=== PATIENT | female | born 1965 | race Two or more races ===

== ENCOUNTER 2023-05-20 09:12 | Outpatient (OUT) | payer OTHER, BC, SELFPAY ==
--- NOTE | 2023-05-20 09:18 | MM_ITS ---
Patient Name: ELAINE SWANSON MR#: [id number] : 1965 Exam Date: 05/20/2023 Ordering Doctor: DR Isak King . RADIOLOGY REPORT PROCEDURE: MM TOMOSYNTHESIS SCREENING BI COMPARISON: MG MAMM SCREEN 3D [place] CAD, 05/06/2021. MG MAMM SCREEN [place] W CAD, 05/11/2019. MG MAMM SCREEN [place] W CAD, 04/30/2017. MG MAMM [place] SCRN W CAD DIG, 05/01/2014. INDICATIONS: Screening Calculator Name NCI Breast Cancer Risk Assessment Tool 5 Year Breast Cancer Risk 1.60% Lifetime Breast Cancer Risk 9.30% Personal Breast Cancer No Personal Ovarian Cancer No Treatments None Family Cancers Aunt-paternal with breast cancer at age 74. LOCATION: The [facility] BREAST COMPOSITION: Extremely dense, which lowers the sensitivity of mammography. FINDINGS: DIAGNOSTIC CATEGORY 1--NEGATIVE. RIGHT BREAST: No significant suspicious finding. No significant change has occurred. LEFT BREAST: No significant suspicious finding. No significant change has occurred. RECOMMENDATIONS: ROUTINE MAMMOGRAM AND CLINICAL EVALUATION IN 12 MONTHS. PLEASE NOTE: A NORMAL MAMMOGRAM DOES NOT EXCLUDE THE POSSIBILITY OF BREAST CANCER. A CLINICALLY SUSPICIOUS PALPABLE LUMP SHOULD BE BIOPSIED. Dictated by: Blaze Stapleton M.D. on 05/20/2023 at 12:00 Approved by: Blaze Stapleton M.D. on 05/20/2023 at 12:02
== END 2023-05-20 09:13 | disposition home or self-care (01) ==
LOC: MAMMO 09:12
PROVIDERS: PCP Family Medicine; Visit Provider Family Medicine
DX: Z12.31 Encounter for screening mammogram for malignant neoplasm of breast (principal); Z80.3 Family history of malignant neoplasm of breast
CPT/HCPCS: 77063; 77067

== ENCOUNTER 2023-08-12 09:00 | Outpatient (OUT) | payer OTHER, SELFPAY ==
--- NOTE | 2023-08-12 09:07 | MM_ITS ---
Patient Name: ELAINE SWANSON MR#: [id number] : 1965 Exam Date: 08/12/2023 Ordering Doctor: DR KARSTEN SIN . RADIOLOGY REPORT PROCEDURE: MM TOMOSYNTHESIS DIAGNOSTIC BI, 08/12/2023, 09:08 US BREAST BI LIMITED, 08/12/2023, 09:43 COMPARISON: MM TOMOSYNTHESIS SCREENING BI, 05/20/2023. MG MAMM SCREEN 3D [place] CAD, 05/06/2021. MG MAMM SCREEN [place] W CAD, 05/11/2019. MG MAMM SCREEN [place] W CAD, 04/30/2017. INDICATIONS: pain of both breasts N64.4 Calculator Name NCI Breast Cancer Risk Assessment Tool 5 Year Breast Cancer Risk 1.60% Lifetime Breast Cancer Risk 9.30% Personal Breast Cancer No Personal Ovarian Cancer No Treatments None Family Cancers Aunt-paternal with breast cancer at age 74. LOCATION: The [facility] BREAST COMPOSITION: Extremely dense, which lowers the sensitivity of mammography. FINDINGS: DIAGNOSTIC CATEGORY 3--PROBABLY BENIGN FINDING. THE FOLLOWING FINDING(S) HAS A HIGH PROBABILITY OF A BENIGN ETIOLOGY: RIGHT BREAST: 10 mm nodule versus dense fibroglandular tissue within anterior medial breast approximately 3 o'clock. Ultrasound evaluation demonstrates an 8 x 8 x 5 mm fairly well-circumscribed hypoechoic mass which corresponds to the mammographic findings. No appreciable internal blood flow on color Doppler. While this is nonspecific the appearance is not overtly suspicious. Follow-up ultrasound evaluation in 6 months is recommended to document stability. Alternatively, ultrasound-guided tissue sampling could be performed if desired. LEFT BREAST: No significant suspicious finding. No significant change has occurred. RECOMMENDATIONS: SHORT TERM FOLLOW-UP ULTRASOUND RIGHT BREAST IN 6 MONTHS. PLEASE NOTE: A NORMAL MAMMOGRAM DOES NOT EXCLUDE THE POSSIBILITY OF BREAST CANCER. A CLINICALLY SUSPICIOUS PALPABLE LUMP SHOULD BE BIOPSIED. Dictated by: Blaze Stapleton M.D. on 08/12/2023 at 10:36 Approved by: Blaze Stapleton M.D. on 08/12/2023 at 10:43
== END 2023-08-12 09:01 | disposition home or self-care (01) ==
LOC: MAMMO 09:02
PROVIDERS: PCP Family Medicine; Visit Provider Family Medicine
DX: N64.4 Mastodynia (principal); Z80.3 Family history of malignant neoplasm of breast
CPT/HCPCS: 76642; 77066; G0279

== ENCOUNTER 2023-11-03 07:49 | Emergency (ER) | payer OTHER, SELFPAY ==
[2023-11-03 07:53] VITALS: BP 142/69; PULSE 79; TEMP 36.6; O2SAT 97; BMI 25.8
--- OUTSIDE RECORDS SUMMARY | 2023-11-03 07:59 | XMS_ITS | CCD ---
Author Organization [facility] Care Team Providers Care Manometer Technician Name Role Phone DR KARSTEN SIN Primary Care Unavailable REQUEST, NONE LISTED Attending Unavaila ble REQUEST, NONE LISTED Consulting Unavaila ble REQUEST, NONE LISTED Admitting Unavaila ble KARSTEN SIN Attending Unavailable Results Test Name Value Interpretation Reference Range Facil ity REBEKAH - TSHon 10-14-2022 TSH 1.685 uIU/mL Normal 0.358-3.740 The [facility] Comment on above: Performed By: #### DATTSH #### [facility] [address] [address] [address] Kristofer Arredondo TSH RANGE SEE BELOW Normal The [facility] Comment on above: Result Comment: <0.34 UIU/ml HYPERTHYROI D 0.34-5.60 UIU/ml EUTHYROID >5.60 UIU/ml HYPOTHYROID Performed By: #### D ATTSH #### [facility] [address] [place], [place] [address] Dr. Kristofer Arredondo Chart Updateon 02-09-2019 Chart Update Active Problems Counseling for travel (V65.49) (Z71.89) Encounter for vaccination (V05.9) (Z23) Chart Update Progress Note Free Text_[facility]: Patient here for Yellow Fever vaccine. She received her last one 10 years ago in [place]. Told patient she is good for life and does not need another booster. Signatures Electronically signed by : RADHA Pina; Feb 09 2019 2:27PM EST (Author) Normal [facility] Encounters Encounter Date Encounter Type Care Provider Facility Start: 07-29-2023 End: 07-29-2023 ambulatory KARSTEN SIN Not Available Start: 10-14-2022 End: 10-15-[address] KARSTEN SIN Facility:[facility] Payers Date Payer Category Payer Unknown [id number] 1965 Unknown [id number] 1959 Self-pay Unknown [id number] [id number] [id number] Summary Purpose Family History No Family History Records FoundNo Family History Records FoundNo Family History Records Found Advance Directives No Advanced Directives Records FoundNo Advanced Directives Records FoundNo Advanced Directives Records Found Additional Source Comments INFORMATION SOURCE (unrecogn ized section and content) DATE CREATED AUTHOR 02/10/2019 [facility] DATE CREATED AUTHOR AUTHOR'S ORGANIZ ATION 10/15/2022 [facility] DATE CREATED AUTHOR AUTHOR'S ORGANIZ ATION 07/30/2023 [facility] EP[employer] FOR RECORDS PERTAINING TO PATIENTS WHO ARE OR HAVE BEEN ENROLLED IN A CHEMICAL DEPENDENCY/SUBSTANCEABUSE PROGRAM, SOME INFORMATION MAY BE OMITTED. This clinical summary was aggregated from multiple sources. Caution should be exercised in using it in the provision of clinical care. This summary normalizes information from multiple sources, and as a consequence, information in this document may materially change the coding, format and clinical context of patient data. In addition, data may be omitted in some cases. CLINICAL DECISIONS SHOULD BE BASED ON THE PRIMARY CLINICAL RECORDS. [facility] [employer] [facility]. provides no warranty or guarantee of the accuracy or completeness of information in this document.
--- NOTE | 2023-11-03 08:22 | XR_ITS ---
The [address] [address] Patient Name: ELAINE SWANSON MRN: [id number] date: 1965 Sex: F Assigned Patient Location: ER Current Patient Location: ER Accession/Order Number: [id number] Exam Date: 11/03/2023 08:43 Report Date: 11/03/2023 09:10 At the request of: MARIA EUGENIA CENTENO Procedure: XR chest 2V EXAMINATION: XR chest 2V HISTORY: chest injury, fall , shortness breath, left scapular pain COMPARISON: No relevant comparison available. FINDINGS: LUNGS: Mild haziness within lateral left lung base. VASCULATURE: No increased pulmonary vasculature. PLEURA: Blunting of costophrenic angles bilaterally expansion versus pleural fluid. No pneumothorax. CARDIAC: No cardiomegaly or cardiac silhouette abnormality. MEDIASTINUM: No visible mass or adenopathy. BONES: Questionable fracture of posterior-lateral left ninth rib as seen on the lateral view. OTHER: Negative. XR/XR chest 2V IMPRESSION: 1. Questionable fracture of the posterior lateral left ninth rib. 2. Trace amount left basilar atelectasis versus infiltrates. 3. Blunting of the costophrenic angles bilaterally is likely due to hyperexpansion of the lungs. Small pleural effusions cannot be completely excluded. Electronically authenticated by: LAURA MCMANUS Date: 11/03/2023 09:10
--- NOTE | 2023-11-03 08:26 | ED.FALL1 ---
HPI HPI - Fall General Chief Complaint: Back Pain/Injury Stated Complaint: back pain/ fall Time Seen by Provider: 11/03/23 08:00 Source: patient Mode of arrival: Wheelchair Limitations: no limitations History of Present Illness HPI Narrative: Patient was running with the dog on 10/30/23 when she tripped and fell, falling forward and landing on her chest - she was unable to get her arms up in time to break the fall. She denied injuring the head, neck or back. She said that she was unable to lift her arms due to the pain in the mid chest. She took some tylenol that night. Over the next few days she went about her daily activities, still in pain and unable to lift her arms up or take deep breaths due to the pain in the mid chest. Yesterday she was able to move her arms more and was lifting some pots that she had purchased to prepare for planting. While doing so she began to have pain in the left scapula. She took 650mg tylenol around 130am and nothing since. She presents to the ED now complaining of pain in the mid chest and the left scapula. Related Data Home Medications ?Medication ?Instructions ?Recorded ?Confirmed cnpauwfsoa-hmfxfftxbzebi-jgadrwju 1 tab PO Q6H PRN pain 11/03/23 11/03/23 50 mg-325 mg-40 mg tablet levothyroxine 75 mcg tablet 75 mcg PO DAILY 11/03/23 11/03/23 Previous Rx's ?Medication ?Instructions ?Recorded hydrocodone 5 mg-acetaminophen 325 1 tab PO Q6H PRN pain 4 days #14 11/03/23 mg tablet tabs methocarbamol 750 mg tablet 750 mg PO Q6H PRN pain #30 tabs 11/03/23 Allergies Allergy/AdvReac Type Severity Reaction Status Date / Time naproxen [From Naprosyn] Allergy Mild Verified 11/03/23 08:07 Opioid HPI Opioid Management Most Recent Pain and Opioid Data: Last Pain Scale 8 11/03/23 09:16 Last ED Pain Assessment 11/03/23 09:16 Last MAR Pain Assessment 11/03/23 08:50 Exam Narrative Exam Narrative: Nurses note and vital signs reviewed and patient is not hypoxic. afebrile General: The patient appears well and in no apparent distress. Patient is resting comfortably on cart. GCS = 15. Skin: Warm, dry, no pallor noted. Head: Normocephalic, atraumatic Neck: Supple, trachea mid-line, no tenderness, no lymphadenopathy. Full ROM and no cervical spinal tenderness. The patient has no step-offs or crepitus noted Eyes: PERRLA, EOMI Cardiovascular: Regular Rate and Rhythm Respiratory: Patient is in no distress, no accessory muscle use, lungs are clear to auscultation, no wheezing, rales or rhonchi Chest Wall: Diffuse anterior chest wall tenderness. No crepitus or subcutaneous emphysema. Back: Soft tissue No thoracic vertebral or lumbar vertebral tenderness to palpation. No trapezius tenderness. No ecchymosis, abrasions, lacerations noted. Musculoskeletal: no sign of long bone fracture, no tenderness, no swelling. Pulses at femoral, DP, PT, and popiteal were 2+ bilaterally. Moves all four extremities in all modalities with 5/5 strength. GI: Normal bowel sounds, no tenderness to palpation, no masses appreciated. No rebound, guarding, or rigidity noted. 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 Psychiatric: Cooperative Constitutional Vital Signs, click to edit/add: Last Vital Signs Temp 97.8 F 11/03/23 07:53 Pulse 79 11/03/23 07:53 Resp 18 11/03/23 07:53 BP 142/69 H 11/03/23 07:53 Pulse Ox 97 11/03/23 07:53 O2 Del Method Room Air 11/03/23 07:53 Course Vital Signs Vital signs: Vital Signs Temperature 97.8 F 11/03/23 07:53 Pulse Rate 79 11/03/23 07:53 Respiratory Rate 18 11/03/23 07:53 Blood Pressure 142/69 H 11/03/23 07:53 Pulse Oximetry 97 11/03/23 07:53 Oxygen Delivery Method Room Air 11/03/23 07:53 Temperature 97.8 F 11/03/23 07:53 Pulse Rate 79 11/03/23 07:53 Respiratory Rate 18 11/03/23 07:53 Blood Pressure 142/69 H 11/03/23 07:53 Pulse Oximetry 97 11/03/23 07:53 Oxygen Delivery Method Room Air 11/03/23 07:53 MDM - Fall MDM Narrative Medical decision making narrative: The patient was medicated with IM Solu-Medrol and oral [place]. X-rays of the chest were then obtained. She was found to have a possible fracture of the posterior lateral left ninth rib. Do not see fracture of the sternum. No pneumothorax Or other worrisome cardiopulmonary abnormalities were noted. Incidental finding of atelectasis versus infiltrate with small pleural effusions due to the patient's inability to take a deep breath on chest x-ray were noted. The patient was informed of results and discharged home with prescriptions for additional [place] as well as Robaxin. She can see her primary care physician for follow-up. Emergency department return if she worsens. Imaging Data Chest x-ray: Attestation: I have reviewed the pertinent imaging results. Radiologist's impression: ITS Impressions Chest X-Ray 11/03/23 08:22 IMPRESSION: 1. Questionable fracture of the posterior lateral left ninth rib. 2. Trace amount left basilar atelectasis versus infiltrates. 3. Blunting of the costophrenic angles bilaterally is likely due to hyperexpansion of the lungs. Small pleural effusions cannot be completely excluded. Electronically authenticated by: LAURA MCMANUS Date: 11/03/2023 09:10 Discharge Plan Discharge Stand Alone Forms: Portal Instructions Chief Complaint: Back Pain/Injury Clinical Impression: Acute chest wall pain, Fracture of rib Patient Disposition: Home, Self-Care Time of Disposition Decision: 09:33 Prescriptions / Home Meds: New methocarbamol 750 mg tablet 750 mg PO Q6H PRN (Reason: pain) Qty: 30 0RF hydrocodone-acetaminophen 5-325 mg tablet 1 tab PO Q6H PRN (Reason: pain) 4 Days Qty: 14 0RF No Action levothyroxine 75 mcg tablet 75 mcg PO DAILY yxssexzhjr-lhlrjifanopwz-uyzt 50-325-40 mg tablet 1 tab PO Q6H PRN (Reason: pain) Print Language: Taiwanese Instructions: Rib Fracture (ED), Chest Wall Pain (ED) Referrals: Isak King MD [Primary Care Provider] - 1 week Discharge Date/Time: 11/03/23 09:42
[2023-11-03] MEDS: HYDROCODONE/ACET 5-325 MG TABLET 1 TAB PO (08:50)
[2023-11-03] MEDS: KETOROLAC TROMETHAMINE 60 MG/2 ML VIAL IM (08:50)
== END 2023-11-03 09:42 | disposition home or self-care (01) ==
PROVIDERS: Emergency Provider Emergency Medicine; PCP Family Medicine
DX: R07.89 Other chest pain (principal); S22.32XA Fracture of one rib, left side, initial encounter for closed fracture; W01.10XA Fall on same level from slipping, tripping and stumbling with subsequent striking against unspecified object, initial encounter; Z79.899 Other long term (current) drug therapy; Z79.890 Hormone replacement therapy
CPT/HCPCS: 71046; 96372; 99284

== ENCOUNTER 2024-02-17 07:23 | Outpatient (OUT) | payer OTHER, SELFPAY ==
--- OUTSIDE RECORDS SUMMARY | 2024-02-17 07:27 | XMS_ITS | CCD ---
Author Organization [facility] Inform ion Partnership [facility] Care Team Providers Care Hot Dip Tinning Supervisor Name Role Phone DR KARSTEN SIN Primary Care Unavailable REQUEST, NONE LISTED Attending Unavaila ble REQUEST, NONE LISTED Consulting Unavaila ble REQUEST, NONE LISTED Admitting Unavaila ble KARSTEN SIN Attending Unavailable Results Test Name Value Interpretation Reference Range Facil ity REBEKAH - TSHon 10-14-2022 TSH 1.685 uIU/mL Normal 0.358-3.740 The [facility] Comment on above: Performed By: #### DATTSH #### [facility] [address] [address] [address] Kristofer Arredondo TSH RANGE SEE BELOW Normal The [facility] Comment on above: Result Comment: <0.34 UIU/ml HYPERTHYROI D 0.34-5.60 UIU/ml EUTHYROID >5.60 UIU/ml HYPOTHYROID Performed By: #### D ATTSH #### [facility] [address] [place], [place] [address] Dr. Kristofer Arredondo Chart Updateon 02-09-2019 Chart Update Active Problems Counseling for travel (V65.49) (Z71.89) Encounter for vaccination (V05.9) (Z23) Chart Update Progress Note Free Text_[facility]: Patient here for Yellow Fever vaccine. She received her last one 10 years ago in [place]. Told patient she is good for life and does not need another booster. Signatures Electronically signed by : RADHA Pina; Feb 09 2019 2:27PM EST (Author) Normal [facility] Encounters Encounter Date Encounter Type Care Provider Facility Start: 07-29-2023 End: 07-29-2023 ambulatory KARSTEN SIN Not Available Start: 10-14-2022 End: 10-15-[address] KARSTEN SIN Facility:[facility] Payers Date Payer Category Payer Unknown [id number] 1965 Unknown [id number] 1959 Self-pay Unknown [id number] Summary Purpose Family History No Family History Records FoundNo Family History Records FoundNo Family History Records Found Advance Directives No Advanced Directives Records FoundNo Advanced Directives Records FoundNo Advanced Directives Records Found Additional Source Comments INFORMATION SOURCE (unrecogn ized section and content) DATE CREATED AUTHOR 02/10/2019 [facility] DATE CREATED AUTHOR AUTHOR'S ORGANIZ ATION 10/15/2022 [facility] DATE CREATED AUTHOR AUTHOR'S ORGANIZ ATION 07/30/2023 [facility] FOR RECORDS PERTAINING TO PATIENTS WHO ARE [...] BE BASED ON THE PRIMARY CLINICAL RECORDS. [facility]. provides no warranty or guarantee of the accuracy or completeness of information in this document.
--- NOTE | 2024-02-17 07:39 | XR_ITS ---
[address] [address] Patient Name: ELAINE SWANSON MRN: [id number] date: 1965 Sex: F Assigned Patient Location: Current Patient Location: Accession/Order Number: [id number] Exam Date: 02/17/2024 08:00 Report Date: 02/18/2024 06:30 At the request of: KARSTEN SIN Procedure: XR DEXA axial skeleton EXAMINATION: XR DEXA axial skeleton HISTORY: Postmenopausal Z78.0 COMPARISON: No relevant comparison available. TECHNIQUE: Dual-energy X-ray absorptiometry (DXA) was performed. FINDINGS: SPINE ANALYSIS: Average bone mineral density is 0.823 g/cm2. T-score (standard deviation relative to young adult mean): -3.0 . HIP ANALYSIS: Lowest bone mineral density is within the left femoral neck, 0.706 g/cm2. T-score (standard deviation relative to young adult mean): -2.4 . XR/XR DEXA axial skeleton IMPRESSION: World Health Organization Classification: Osteoporosis - High Fracture Risk FRAX: Cannot calculate. Pharmacologic treatment recommendations * No uniform recommendation applies to all patients. Management plans must be individualized. * Consider initiating pharmacologic treatment in postmenopausal women and men >= 50 years of age who have the following: Primary fracture prevention: * T-score <= - 2.5 at the femoral neck, total hip, lumbar spine, 33% radius (some uncertainty with existing data) by DXA. * Low bone mass (osteopenia: T-score between - 1.0 and - 2.5) at the femoral neck or total hip by DXA with a 10-year hip fracture risk >= 3% or a 10-year major osteoporosis-related fracture risk >= 20% (i.e., clinical vertebral, hip, forearm, or proximal humerus) based on the US-adapted FRAXregistered model. Secondary fracture prevention: * Fracture of the hip or vertebra regardless of BMD [4, 5]. * Fracture of proximal humerus, pelvis, or distal forearm in persons with low bone mass (osteopenia: T-score between - 1.0 and - 2.5). The decision to treat should be individualized in persons with a fracture of the proximal humerus, pelvis, or distal forearm who do not have osteopenia or low BMD [12, 13]. Violet MS, Julee SL, Vanita KL, Brandt EM, Thai KG, AJ, Franklin ES. The clinician's guide to prevention and treatment of osteoporosis. Osteoporos Int. 2021;33(10):1450-7798. doi: 10.1007/q65547-705-80605-o. Epub 2021Nov 06. Erratum in: Osteoporos Int. 2021Feb 05;: PMID: [id number]; PMCID: [id number]. Electronically authenticated by: LAURA MCMANUS Date: 02/18/2024 06:30
--- NOTE | 2024-02-17 07:39 | US_ITS ---
Patient Name: ELAINE SWANSON MR#: [id number] : 1965 Exam Date: 02/17/2024 Ordering Doctor: DR Isak King . RADIOLOGY REPORT PROCEDURE: US BREAST RT LIMITED COMPARISON: US BREAST BI LIMITED, 08/12/2023. INDICATIONS: Abnormal Mammogram Right Breast TECHNIQUE: Breast ultrasound was performed, with evaluation focusing only on specific areas of concern. FINDINGS: DIAGNOSTIC CATEGORY 4--SUSPICIOUS FOR MALIGNANCY. FINDING DOES NOT EXHIBIT CLASSIC FINDINGS OF BREAST CANCER: There has been interval increase in size of an oval well-circumscribed heterogeneous hypoechogenic mass 3 o'clock position of the right breast now measuring 1.1 x 0.8 x 0.5 cm. No definite color flow. However in light of the enlargement from the prior exam, Ultrasound core biopsy is recommended RECOMMENDATIONS: ULTRASOUND-GUIDED CORE BIOPSY: RIGHT BREAST PLEASE NOTE: A NORMAL ULTRASOUND EXAMINATION DOES NOT EXCLUDE THE POSSIBILITY OF BREAST CANCER. A CLINICALLY SUSPICIOUS PALPABLE LUMP SHOULD BE BIOPSIED. Dictated by: Zeferino Ospina MD on 02/17/2024 at 08:00 Approved by: Zeferino Ospina MD on 02/17/2024 at 08:03
== END 2024-02-17 07:24 | disposition home or self-care (01) ==
LOC: US 07:24
PROVIDERS: PCP Family Medicine; Visit Provider Family Medicine
DX: R92.8 Other abnormal and inconclusive findings on diagnostic imaging of breast (principal); Z78.0 Asymptomatic menopausal state; N63.10 Unspecified lump in the right breast, unspecified quadrant; M81.0 Age-related osteoporosis without current pathological fracture
CPT/HCPCS: 76642; 77080

== ENCOUNTER 2024-02-22 12:13 | Day surgery (SDC) | payer OTHER, SELFPAY ==
--- NOTE | 2024-02-22 12:19 | US_ITS ---
[address] [address] Patient Name: ELAINE SAWNSON MRN: [id number] date: 1965 Sex: F Assigned Patient Location: US Current Patient Location: US Accession/Order Number: [id number] Exam Date: 02/22/2024 12:20 Report Date: 02/22/2024 14:20 At the request of: KARSTEN SIN Procedure: US breast vac bx w/ clip RT EXAMINATION: US breast vac bx w/ clip RT HISTORY: Right Breast Mass COMPARISON: No relevant comparison available. TECHNIQUE: After obtaining informed consent, an ultrasound-guided biopsy was performed in the usual sterile manner. FINDINGS: IMAGING: Ultrasound BIOPSY NEEDLE: 13-gauge only ultrasound-assisted core biopsy SPECIMEN TYPE, #, LOCATION: 6 samples 3:00 right breast hypoechogenic mass MEDICATION: 3 cc 1% buffered lidocaine without epinephrine superficial. 6 cc 1% buffered lidocaine with epinephrine deep COMPLICATIONS: None. LABORATORY: OTHER: Negative. US/US breast vac bx w/ clip RT IMPRESSION: Uneventful ultrasound guided core biopsy biopsy with clip placement. The patient was instructed to obtain follow up care and biopsy results from the referring physician. Electronically authenticated by: LAURA HARVEY Date: 02/22/2024 14:20
--- NOTE | 2024-02-22 12:21 | MM_ITS ---
Patient Name: ELAINE SWANSON MR#: [id number] : 1965 Exam Date: 02/22/2024 Ordering Doctor: DR Isak King . RADIOLOGY REPORT PROCEDURE: MM POST BIOPSY RT COMPARISON: MM TOMOSYNTHESIS DIAGNOSTIC BI, 08/12/2023. INDICATIONS: Right Breast Mass BREAST COMPOSITION: FINDINGS: Post-Procedure Mammogram for Marker Placement BIOPSY MARKER: A metallic marker has been placed in the targeted location within the lower inner quadrant of the anterior right breast. BREAST FINDINGS: Postprocedural changes with increased density Dictated by: Zeferino Ospina MD on 02/22/2024 at 14:14 Approved by: Zeferino Ospina MD on 02/22/2024 at 14:23
[2024-02-22 12:30] VITALS: BP 149/87; PULSE 67; O2SAT 100
--- OUTSIDE RECORDS SUMMARY | 2024-02-22 12:35 | XMS_ITS | CCD ---
Author Organization [facility] Inform ion Partnership [facility] Care Team Providers Care National Accounts Sales Name Role Phone DR KARSTEN SIN Primary Care Unavailable REQUEST, NONE LISTED Attending Unavaila ble REQUEST, NONE LISTED Consulting Unavaila ble REQUEST, NONE LISTED Admitting Unavaila ble KARSTEN SIN Attending Unavailable Results Test Name Value Interpretation Reference Range Facil ity REBEKAH - TSHon 10-14-2022 TSH 1.685 uIU/mL Normal 0.358-3.740 The [facility] Comment on above: Performed By: #### DATTSH #### [facility] [address] [address] [address] Kristofer Arredondo TSH RANGE SEE BELOW Normal The [facility] Comment on above: Result Comment: <0.34 UIU/ml HYPERTHYROI D 0.34-5.60 UIU/ml EUTHYROID >5.60 UIU/ml HYPOTHYROID Performed By: #### D ATTSH #### [facility] [address] [place], [place] [address] Dr. Kristofer Arredondo Chart Updateon 02-09-2019 Chart Update Active Problems Counseling for travel (V65.49) (Z71.89) Encounter for vaccination (V05.9) (Z23) Chart Update Progress Note Free Text_UH: Patient here for Yellow Fever vaccine. She received her last one 10 years ago in [place]. Told patient she is good for life and does not need another booster. Signatures Electronically signed by : RADHA Pina; Feb 09 2019 2:27PM EST (Author) Normal Touchworks Encounters Encounter Date Encounter Type Care Provider Facility Start: 07-29-2023 End: 07-29-2023 ambulatory KARSTEN SIN Not Available Start: 10-14-2022 End: 10-15-[address] KARSTEN SIN Facility:H1 Payers Date Payer Category Payer Unknown [id number] 1965 Unknown [id number] 1959 Self-pay Unknown [id number] Summary Purpose Family History No Family History Records FoundNo Family History Records FoundNo Family History Records Found Advance Directives No Advanced Directives Records FoundNo Advanced Directives Records FoundNo Advanced Directives Records Found Additional Source Comments INFORMATION SOURCE (unrecogn ized section and content) DATE CREATED AUTHOR 02/10/2019 [employer] DATE CREATED AUTHOR AUTHOR'S ORGANIZ ATION 10/15/2022 [facility] DATE CREATED AUTHOR AUTHOR'S ORGANIZ ATION 07/30/2023 [facility] dicny Specialists [facility] FOR RECORDS PERTAINING TO PATIENTS WHO ARE [...] BE BASED ON THE PRIMARY CLINICAL RECORDS. [facility] [employer] [facility]. provides no warranty or guarantee of the accuracy or completeness of information in this document.
[2024-02-22] MEDS: LIDOCAINE INJ (13:10)
[2024-02-22] MEDS: LIDOCAINE HCL INJ (13:10)
[2024-02-22] MEDS: SODIUM BICARBONATE INJ ×2 (13:10)
[2024-02-22] MEDS: EPINEPHRINE INJ (13:10)
--- NOTE | 2024-02-22 14:25 | SUR.PREOP ---
02/17/24 Pt instructed on procedure, date, time, and prep.
== END 2024-02-22 13:40 | disposition home or self-care (01) ==
LOC: US 12:14
PROVIDERS: Radiology Diagnostic Radiology; PCP Family Medicine; Visit Provider Family Medicine
DX: D24.1 Benign neoplasm of right breast (principal)
CPT/HCPCS: 19083; 77065; 88305

== ENCOUNTER 2024-08-08 20:15 | Outpatient (REF) | payer OTHER, SELFPAY ==
--- OUTSIDE RECORDS SUMMARY | 2024-08-08 20:19 | XMS_ITS | CCD ---
Author Organization [facility] Inform ion Partnership [facility] Care Team Providers Care Manager Universal Name Role Phone DR KARSTEN SIN Primary Care Unavailable REQUEST, NONE LISTED Attending Unavaila ble REQUEST, NONE LISTED Consulting Unavaila ble REQUEST, NONE LISTED Admitting Unavaila ble KARSTEN SIN Attending Unavailable Results Test Name Value Interpretation Reference Range Facil ity REBEKAH - TSHon 10-14-2022 TSH 1.685 uIU/mL Normal 0.358-3.740 The [facility] Comment on above: Performed By: #### DATTSH #### [facility] [address] [address] [address] Kristofer Arredondo TSH RANGE SEE BELOW Normal [facility] Comment on above: Result Comment: <0.34 UIU/ml HYPERTHYROI D 0.34-5.60 UIU/ml EUTHYROID >5.60 UIU/ml HYPOTHYROID Performed By: #### D ATTSH #### [facility] [address] [place], [place] [address] Dr. Kristofer Arredondo Chart Updateon 02-09-2019 Chart Update Active Problems Counseling for travel (V65.49) (Z71.89) Encounter for vaccination (V05.9) (Z23) Chart Update Progress Note Free Text_UH: Patient here for Yellow Fever vaccine. She received her last one 10 years ago in [place]. Told patient she is good for life and does not need another booster. Signatures Electronically signed by : RADHA Pina; Feb 09 2019 2:27PM EST (Author) Normal Touchworks Encounters Encounter Date Encounter Type Care Provider Facility Start: 07-29-2023 End: 07-29-2023 ambulatory KARSTEN SIN Not Available Start: 10-14-2022 End: 10-15-[address] KARSTEN SIN Facility:H1 Payers Date Payer Category Payer Unknown [id number] 1965 Unknown [id number] 1959 Self-pay Unknown [id number] Summary Purpose Family History No Family History Records FoundNo Family History Records FoundNo Family History Records Found Advance Directives No Advanced Directives Records FoundNo Advanced Directives Records FoundNo Advanced Directives Records Found Additional Source Comments INFORMATION SOURCE (unrecogn ized section and content) DATE CREATED AUTHOR 02/10/2019 [employer] DATE CREATED AUTHOR AUTHOR'S ORGANIZ ATION 10/15/2022 [facility] pital DATE CREATED AUTHOR AUTHOR'S ORGANIZ ATION 07/30/2023 [facility] dicwv Specialists [facility] FOR RECORDS PERTAINING TO PATIENTS WHO ARE [...] BE BASED ON THE PRIMARY CLINICAL RECORDS. [facility]. provides no warranty or guarantee of the accuracy or completeness of information in this document.
== END 2024-08-08 20:16 | disposition home or self-care (01) ==
LOC: LAB 20:15
PROVIDERS: PCP Family Medicine; Visit Provider Family Medicine
DX: Z01.419 Encounter for gynecological examination (general) (routine) without abnormal findings (principal)
CPT/HCPCS: 87624; 88175

== ENCOUNTER 2024-09-14 09:18 | Outpatient (OUT) | payer OTHER, BC, SELFPAY ==
--- NOTE | 2024-09-14 09:24 | MM_ITS ---
Patient Name: ELAINE SWANSON MR#: [id number] : 1965 Exam Date: 09/14/2024 Ordering Doctor: DR Isak King . RADIOLOGY REPORT PROCEDURE: MM TOMOSYNTHESIS SCREENING BI COMPARISON: MM POST BIOPSY RT, 02/22/2024. MM TOMOSYNTHESIS DIAGNOSTIC BI, 08/12/2023. MM TOMOSYNTHESIS SCREENING BI, 05/20/2023. MG MAMM [place] SCRN W CAD DIG, 05/01/2014. INDICATIONS: Screening for malignant neoplasm Calculator Name [facility] Breast Cancer Risk Assessment Tool 5 Year Breast Cancer Risk 2.00% Lifetime Breast Cancer Risk 10.70% Personal Breast Cancer No Personal Ovarian Cancer No Treatments None Family Cancers Aunt-paternal with breast cancer at age 74. LOCATION: [facility] BREAST COMPOSITION: The breasts are extremely dense, which lowers the sensitivity of mammography. FINDINGS: DIAGNOSTIC CATEGORY 1--NEGATIVE. RECOMMENDATIONS: ROUTINE MAMMOGRAM AND CLINICAL EVALUATION IN 12 MONTHS. PLEASE NOTE: A NORMAL MAMMOGRAM DOES NOT EXCLUDE THE RIGHT BREAST: No significant suspicious finding. POSSIBILITY OF BREAST CANCER. A CLINICALLY LEFT BREAST: No significant suspicious finding. SUSPICIOUS PALPABLE LUMP SHOULD BE BIOPSIED. Dictated by: Waldemar Stapleton DO on 09/14/2024 at 15:54 Approved by: Waldemar Stapleton DO on 09/14/2024 at 15:55
--- OUTSIDE RECORDS SUMMARY | 2024-09-14 09:34 | XMS_ITS | CCD ---
Author Organization [facility] Care Team Providers Care Airplane Dispatcher Name Role Phone DR KARSTEN SIN Primary Care Unavailable REQUEST, NONE LISTED Attending Unavaila ble REQUEST, NONE LISTED Consulting Unavaila ble REQUEST, NONE LISTED Admitting Unavaila ble Karsten Sin MD Primary Care Provider [phone] Karsten Sin MD Unavailable KARSTEN SIN Attending Unavailable KARSTEN SIN Attending Unavailable Allergies Allergy Classification Reported Allergen(s) Allergy Type Date of Onset Reaction(s) Facility (2 sources) Naproxen Drug Allergy 07-29-2023 Itching [facility] Medications Current Medications Medication Drug Class(es) Dates Sig (Normalized) Sig (Original) alendronic acid 70 mg oral tablet (2 sources) Bisphosphonate Start: 02-18-2024 take 1 tablet by mouth in the morning alendronate (Fosamax) 70 MG tablet Indications: Age-related osteoporosis without current pathological fracture (CMS/HCC) Take 1 tablet (70 mg) by mouth every 7 (seven) days Take in the morning with a full glass of water, on an empty stomach, and do not take anything else by mouth or lie down for the next 30 min. 12 tablet 3 02/18/2024 Active levothyroxine sodium 0.075 mg oral tablet (2 sources) l-Thyroxine Start: 02-03-2024 take 1 tablet by mouth once daily levothyroxine (Synthroid, Levoxyl) 75 MCG tablet Indications: Adult hypothyroidism (CMS/HCC) Take 1 tablet (75 mcg) by mouth Daily 90 tablet 3 02/03/2024 Active prednisoLONE acetate 10 mg/ml ophthalmic suspension (1 source) Corticosteroid Start: 07-23-2024 take 1 drop(s) into the eye(s) four times daily prednisoLONE acetate (Pred-Forte) 1 % ophthalmic suspension INSTILL 1 DROP INTO RIGHT EYE 4 TIMES DAILY DIRECTED 07/23/2024 Active 12 hr timolol 5 mg/ml ophthalmic solution (1 source) beta-Adrenergic Ladan Start: 07-06-2024 take 1 drop(s) into the eye(s) twice daily timolol (Timoptic) 0.5 % ophthalmic solution INSTILL 1 DROP INTO EACH EYE TWICE DAILY DIRECTED 07/06/2024 Active Problems Active Problems Problem Classification Problem Date Documented Da te Episodic/Chronic Glaucoma (1 source) Glaucoma; Translations: [Unspecified glaucoma] Onset: 08-08-2024 08-08-2024 Chronic Osteoporosis (2 sources) Senile osteoporosis; Translations: [Age-related osteoporosis without current pathological fracture] Onset: 02-03-2024 02-18-2024 Chronic Other screening for suspected conditions (not mental disorders or infectious disease) (3 sources) Mammography abnormal; Translations: [Other abnormal and inconclusive findings on diagnostic imaging of breast] Onset: 02-03-2024 02-03-2024 Episodic Thyroid disorders (2 sources) Hypothyroidism; Translations: [Hypothyroidism, unspecified] Onset: 07-29-2023 07-29-2023 Chronic Past or Other Problems Problem Classification Problem Date Documented Da te Episodic/Chronic Headache; including migraine (2 sources) Migraine without aura, not refractory ; Translations: [Migraine without aura, not intractable, without status migrainosus] Onset: 07-29-2023 Resolved: 02-03-2024 02-03-2024 Chronic Nonmalignant breast conditions (2 sources) Mastodynia of bilateral breasts; Translations: [Mastodynia] Onset: 07-29-2023 Resolved: 02-03-2024 02-03-2024 Episodic Results Test Name Value Interpretation Reference Range Facil ity REBEKAH - TSHon 10-14-2022 TSH 1.685 uIU/mL Normal 0.358-3.740 The [facility] Comment on above: Performed By: #### DATTS #### [facility] [address] [place] [address] Dr. Kristofer Arredondo TSH RANGE SEE BELOW Normal [facility] Comment on above: Result Comment: <0.34 UIU/ml HYPERTHYROI D 0.34-5.60 UIU/ml EUTHYROID >5.60 UIU/ml HYPOTHYROID Performed By: #### D ATTSH #### [facility] [address] [address] [address] Kristofer Arredondo Chart Updateon 02-09-2019 Chart Update Active Problems Counseling for travel (V65.49) (Z71.89) Encounter for vaccination (V05.9) (Z23) Chart Update Progress Note Free Text_UH: Patient here for Yellow Fever vaccine. She received her last one 10 years ago in [place]. Told patient she is good for life and does not need another booster. Signatures Electronically signed by : RADHA Pina; Feb 09 2019 2:27PM EST (Author) Normal [facility] Vital Signs Date Time Vital Sign Value Performing Clinician Remington lozada 08-08-2024 09:23-0500 Body height 147.3 cm Karsten Sin MD Work Phone: [facility] 08-08-2024 09:23-0500 Body mass index (BMI) [Ratio] 21.11 kg/m2 Karsten Sin MD Work Phone: [facility] 08-08-2024 09:23-0500 Body temperature 97.5 [degF] Karsten Sin MD Work Phone: [facility] 08-08-2024 09:23-0500 Body weight 45.81 kg Karsten Sin MD Work Phone: [facility] 08-08-2024 09:23-0500 Diastolic blood pressure 58 mm[Hg] Karsten Sin MD Work Phone: [facility] 08-08-2024 09:23-0500 Heart rate 80 /min Karsten Sin MD Work Phone: [facility] 08-08-2024 09:23-0500 Respiratory rate 22 /min Karsten Sin MD Work Phone: [facility] 08-08-2024 09:23-0500 SaO2% (BldA) [Mass fraction] 98 % Karsten Sin MD Work Phone: [facility] 08-08-2024 09:23-0500 Systolic blood pressure 122 mm[Hg] Karsten Sin MD Work Phone: [facility] Encounters Encounter Date Encounter Type Care Provider Facility Start: 08-08-2024 End: 08-08-2024 Bamboo flowsheet Karsten Sin MD Work Phone: [facility] Start: 08-08-2024 End: 08-08-2024 BamZangZing flowsheet Karsten Sin MD Work Phone: [facility] Start: 08-08-2024 End: 08-08-2024 Patient encounter status Karsten Sin MD Work Phone: [facility] Work Phone: Start: 08-08-2024 End: 08-08-2024 Periodic preventive med est patient 40-64yrs Karsten Sin MD Work Phone: [facility] Comment on above: Encounter for gyneco logical examination without abnormal finding (Primary Dx); Breast cancer screening by mammogram Start: 08-08-2024 End: 08-08-2024 ambulatory KARSTEN SIN Not Available Start: 02-03-2024 Patient encounter procedure Karsten Sin MD Work Phone: [facility] Start: 02-03-2024 End: 02-03-2024 ambulatory KARSTEN SIN Not Available Start: 10-14-2022 End: 10-15-[address] KARSTEN SIN Facility:[facility]1 Procedures Date Procedure Procedure Detail Performing Clinician Start: 02-22-2024 Mammography Karsten foster MD Work Phone: Start: 05-20-2023 Mammography Karsten foster MD Work Phone: Plan of Treatment Date Care Activity Detail Author Start: 10-26-2026 Screening for malignant neoplasm of colon [facility] Start: 02-21-2025 Screening for malignant neoplasm of breast Mammogram [facility] Start: 08-08-2024 End: 10-06-2025 MG Breast - bilateral Screening Bilateral screening mammogram Imaging Routine Breast cancer screening by mammogram Expected: 08/08/2024, Expires: 10/06/2025 [facility] Work Phone: Comment on above: Expected: 08/08/2024 , Expires: 10/06/2025 Start: 08-08-2024 End: 08-08-2024 Patient encounter procedure 08/08/2024 9:15 AM EST Procedure Visit [facility] [address] [id number] Karsten Sin MD [address] [place] [place] [phone] Arrived [facility] Comment on above: Arrived Start: 05-20-2024 Screening for malignant neoplasm of breast Mammogram [facility] Start: 1995 Screening for malignant neoplasm of cervix [facility] Start: 1986 Screening for malignant neoplasm of cervix Pap Smear [facility] Start: 1965 Screening for malignant neoplasm of colon [facility] Payers Date Payer Category Payer [facility] [employer] [id number] 2022 Unknown [id number] 1965 Unknown [id number] 1965 Unknown [id number] 1959 Self-pay Unknown [id number] Social History Date Type Detail Facility Start: 07-29-2023 Tobacco smoking status NHIS Never sm oked tobacco [facility] Start: 07-29-2023 Tobacco use and exposure Smoke less tobacco non-user [facility] Start: 07-26-2023 End: 08-02-2024 [facility] of Social function [facility] Start: 07-26-2023 End: 08-02-2024 [id number] Health Literacy [facility] How often do you nee d to have someone help you when you read instructions, pamphlets, or other written material from your doctor or pharmacy [SILS] Never [facility] Do you belong to any clubs or organizations such as denominational groups, unions, fraternal or athletic groups, or school groups? Yes [facility] Are you now , , , , never or living with a partner? [facility] How often to you hav e a drink containing alcohol? Never [facility] Do you feel stress - tense, restless, nervous, or anxious, or unable to sleep at night because your mind is troubled all the time - these days [OSQ] Not at all [facility] In the past 12 month s, was there a time when you were not able to pay the mortgage or rent on time? No [facility] Start: 1965 Sex assigned at Female [facility] Start: 07-15-2023 Gender identity Identifies as female gender (finding) [facility] History of Present illness Narrative 08-08-2024 Karsten Sin MD - 08/08/2024 10:09 AM Milind Sin MD - 08/08/2024 9:15 AM EST Note Date & Type Note Facility 08-08-2024 History of Presen t illness Narrative Associated Problem(s): Encounter for gynecological examination without abnormal finding Will notify of results by mail or call with abnormals. Continue monthly self breast exams and yearly mammograms. Recommend balanced diet and regular aerobic activity 30 minutes per day 5-6 days per week. Activity reduces risk of osteoporosis. Ensure adequate calcium and Vit D intake, may need to supplement. Tetanus booster every 10 years. Cologuard normal October 2023. Avoid excessive sun exposure or tanning beds Images from the original note were not included. Subjective Patient ID: Mona Faria is a 59 y.o. female who presents for Follow-up and Gynecologic Exam (PAP TEST). Presents for annual PAP. History of abnormal Pap: Y__ N_X_ Performs monthly self breast exams: Y_X_ N__ Family history diseases of female organs: Y__ N_X_ Currently on Hormone Replacement Therapy: Y__ N_X_ Control: OCP__ Depo__ Condoms__ Patch__ Abstinence__ Tubal__ Nuva Ring__Menopause_X_. Age Menarche: 13 Menopause at age: 40 Vaginal discharge: Y__ N_X_ Concern STD exposure: No Review of Systems Respiratory: Negative for cough, shortness of breath and wheezing. Cardiovascular: Negative for chest pain and palpitations. Gastrointestinal: Negative for abdominal pain, diarrhea, nausea and vomiting. Genitourinary: Negative for dysuria. Objective Physical Exam Exam conducted with a driller hand present. Constitutional: General: She is not in acute distress. Appearance: Normal appearance. HENT: Head: Normocephalic. Right Ear: Tympanic membrane normal. Left Ear: Tympanic membrane normal. Eyes: Extraocular Movements: Extraocular movements intact. Pupils: Pupils are equal, round, and reactive to light. Cardiovascular: Rate and Rhythm: Normal rate and regular rhythm. Heart sounds: No murmur heard. No friction rub. No gallop. Pulmonary: Effort: Pulmonary effort is normal. Breath sounds: Normal breath sounds. No wheezing, rhonchi or rales. Abdominal: General: Bowel sounds are normal. There is no distension. Palpations: Abdomen is soft. Tenderness: There is no abdominal tenderness. There is no guarding or rebound. Genitourinary: General: Normal vulva. Exam position: Lithotomy position. Labia: Right: No tenderness or lesion. Left: No tenderness or lesion. Vagina: No vaginal discharge. Cervix: Normal. Uterus: Normal. Adnexa: Right adnexa normal and left adnexa normal. Musculoskeletal: General: No swelling or tenderness. Cervical back: Neck supple. Right lower leg: No edema. Left lower leg: No edema. Skin: Findings: No erythema or rash. Neurological: General: No focal deficit present. Mental Status: She is alert and oriented to person, place, and time. Cranial Nerves: No cranial nerve deficit. Motor: No weakness. Gait: Gait normal. Assessment/Plan Problem List Items Addressed This Visit Encounter for gynecological examination without abnormal finding - Primary Will notify of results by mail or call with abnormals. Continue monthly self breast exams and yearly mammograms. Recommend balanced diet and regular aerobic activity 30 minutes per day 5-6 days per week. Activity reduces risk of osteoporosis. Ensure adequate calcium and Vit D intake, may need to supplement. Tetanus booster every 10 years. Cologuard normal October 2023. Avoid excessive sun exposure or tanning beds Other Visit Diagnoses Breast cancer screening by mammogram Relevant Orders Bilateral screening mammogram documented in this encounter [facility] Evaluation note Note Date & Type Note Facility Evaluation note Diagnosis Annual physical exam- Primary Routine general medical examination at a health care facility Postmenopausal Asymptomatic postmenopausal status (age-related) (natural) Abnormal mammogram of right breast Adult hypothyroidism (CMS/HCC) Unspecified hypothyroidism Encounter for gynecological examination without abnormal finding- Primary Breast cancer screening by mammogram documented in this encounter [facility] Summary Purpose Family History No Family History Records FoundNo Family History Records FoundNo Family History Records Found Advance Directives No Advanced Directives Records FoundNo Advanced Directives Records FoundNo Advanced Directives Records Found Additional Source Comments INFORMATION SOURCE (unrecogn ized section and content) DATE CREATED AUTHOR 02/10/2019 [employer] DATE CREATED AUTHOR AUTHOR'S ORGANIZ ATION 10/15/2022 [facility] pital DATE CREATED AUTHOR AUTHOR'S ORGANIZ ATION 08/09/2024 [facility] dical Specialists [employer] Care Teams (unrecognized sec tion and content) Airplane Dispatcher Relationship Specialty Start Date End Date Karsten Sin MD [address] [place] [phone] PCP - General Family Medicine 07/29/23 Karsten Sin MD [address] [place] [phone] PCP - Medical [place] [employer] 02/09/22 07/11/99 Airplane Dispatcher Relationship Specialty Start Date End Date Karsten Sin MD [address] [place] [address] PCP - General Family Medicine 07/29/23 Karsten Sin MD [address] [place] [address] PCP - Medical [employer]ibri Heart Valve 02/09/22 07/11/99 Reason for Visit (unrecogniz ed section and content) Reason Comments Follow-up Gynecologic Exam PAP TEST FOR RECORDS PERTAINING TO PATIENTS WHO ARE [...] BE BASED ON THE PRIMARY CLINICAL RECORDS. [employer] provides no warranty or guarantee of the accuracy or completeness of information in this document.
== END 2024-09-14 09:19 | disposition home or self-care (01) ==
LOC: MAMMO 09:19
PROVIDERS: PCP Family Medicine; Visit Provider Family Medicine
DX: Z12.31 Encounter for screening mammogram for malignant neoplasm of breast (principal); Z80.3 Family history of malignant neoplasm of breast
CPT/HCPCS: 77063; 77067

== ENCOUNTER 2024-09-26 22:16 | Outpatient (REF) | payer OTHER, SELFPAY ==
--- OUTSIDE RECORDS SUMMARY | 2024-09-26 22:19 | XMS_ITS | CCD ---
Author Organization [facility] Care Team Providers Care Node Js Developer Name Role Phone DR KARSTEN SIN Primary Care Unavailable REQUEST, NONE LISTED Attending Unavaila ble REQUEST, NONE LISTED Consulting Unavaila ble REQUEST, NONE LISTED Admitting Unavaila ble Karsten Sin MD Primary Care Provider Karsten Sin MD Unavailable KARSTEN SIN Attending Unavailable JANUARY, KARSTEN Attending Unavailable Allergies Allergy Classification Reported Allergen(s) [...] TSH 1.685 uIU/mL Normal 0.358-3.740 [facility] Comment on above: Performed By: #### DATTS #### [facility] [address] [place] [address] Dr. Kristofer Arredondo TSH RANGE SEE BELOW Normal [facility] Comment on above: Result Comment: <0.34 UIU/ml HYPERTHYROI D 0.34-5.60 UIU/ml EUTHYROID >5.60 UIU/ml HYPOTHYROID Performed By: #### D ATTSH #### [facility] [address] [address] [address] Kristofer Arredondo Chart Updateon 02-09-2019 Chart Update Active Problems Counseling for travel (V65.49) (Z71.89) Encounter for vaccination (V05.9) (Z23) Chart Update Progress Note Free Text_[facility]: Patient here for Yellow Fever vaccine. She received her last one 10 years ago in [place]. Told patient she is good for life and does not need another booster. Signatures Electronically signed by : RADHA Pina; Feb 09 2019 2:27PM EST (Author) Normal [facility] Vital Signs Date Time Vital Sign Value Performing Clinician Remington lozada 08-08-2024 09:23-0500 Body height 147.3 cm Karsten Sin MD Work Phone: [facility] 08-08-2024 09:23-0500 Body mass index (BMI) [Ratio] 21.11 kg/m2 Karsten Sin MD Work Phone: [facility] 08-08-2024 09:23-0500 Body temperature 97.5 [degF] Karsten Sin MD Work Phone: [facility] 08-08-2024 09:23-0500 Body weight 45.81 kg Karsten Sin MD Work Phone: [facility] 08-08-2024 09:23-0500 Diastolic blood pressure 58 mm[Hg] Karsten Sin MD Work Phone: [facility] 08-08-2024 09:23-0500 Heart rate 80 /min Karsten Sin MD Work Phone: [facility] 08-08-2024 09:23-0500 Respiratory rate 22 /min Karsten Sin MD Work Phone: [facility] 08-08-2024 09:23-0500 SaO2% (BldA) [Mass fraction] 98 % Karsten Sin MD Work Phone: [facility] 08-08-2024 09:23-0500 Systolic blood pressure 122 mm[Hg] Karsten Sin MD Work Phone: [facility] Encounters Encounter Date Encounter Type Care Provider Facility Start: 08-08-2024 End: 08-08-2024 Bamboo flowsheet Karsten Sin MD Work Phone: [facility] Start: 08-08-2024 End: 08-08-2024 [email or web address] flowsheet Karsten Sin MD Work Phone: [facility] Start: 08-08-2024 End: 08-08-2024 Patient encounter status Karsten Sin MD Work Phone: [facility] Work Phone: Start: 08-08-2024 End: 08-08-2024 Periodic preventive med est patient 40-64yrs Karsten Sin MD Work Phone: [facility] Comment on above: Encounter for gyneco logical examination without abnormal finding (Primary Dx); Breast cancer screening by mammogram Start: 08-08-2024 End: 08-08-2024 ambulatory KARSTEN SIN Not Available Start: 02-03-2024 Patient encounter procedure Karsten Sin MD Work Phone: [facility] Start: 02-03-2024 End: 02-03-2024 ambulatory KARSTEN SIN Not Available Start: 10-14-2022 End: 10-15-[address] KARSTEN SIN Facility:[facility] Procedures Date Procedure Procedure Detail Performing Clinician Start: 02-22-2024 Mammography Karsten foster MD Work Phone: Start: 05-20-2023 Mammography Karsten foster MD Work Phone: Plan of Treatment Date Care Activity Detail Author Start: 10-26-2026 Screening for malignant neoplasm of colon [facility] Start: 02-21-2025 Screening for malignant neoplasm of breast Mammogram [facility] Start: 08-08-2024 End: 10-06-2025 MG Breast - bilateral Screening Bilateral screening mammogram Imaging Routine Breast cancer screening by mammogram Expected: 08/08/2024, Expires: 10/06/2025 [facility] Work Phone: Comment on above: Expected: 08/08/2024 , Expires: 10/06/2025 Start: 08-08-2024 End: 08-08-2024 Patient encounter procedure 08/08/2024 9:15 AM EST Procedure Visit [facility] [address] [place] [phone] Karsten Sin MD [address] [place] [id number] Arrived [facility] Comment on above: Arrived Start: 05-20-2024 Screening for malignant neoplasm of breast Mammogram [facility] Start: 1995 Screening for malignant neoplasm of cervix [facility] Start: 1986 Screening for malignant neoplasm of cervix Pap Smear [facility] Start: 1965 Screening for malignant neoplasm of colon [facility] Payers Date Payer Category Payer [facility] Insurance [employer] [id number] 2022 Unknown [id number] 1965 Unknown [id number] 1965 Unknown [id number] 1959 Self-pay Unknown [id number] Social History Date Type Detail Facility [...] to any clubs or organizations such as taoism groups, unions, fraternal or athletic groups, or [...] Objective Physical Exam Exam conducted with a printing machine operator present. Constitutional: General: She is not in [...] Bilateral screening mammogram documented in this encounter [facility] Evaluation note Note Date & Type Note Facility Evaluation note Diagnosis Annual physical exam- Primary Routine general medical examination at a health care facility Postmenopausal Asymptomatic postmenopausal status (age-related) (natural) Abnormal mammogram of right breast Adult hypothyroidism (CMS/HCC) Unspecified hypothyroidism Encounter for gynecological examination without abnormal finding- Primary Breast cancer screening by mammogram documented in this encounter [facility] Summary Purpose Family History No Family History Records FoundNo Family History Records FoundNo Family History Records Found Advance Directives No Advanced Directives Records FoundNo Advanced Directives Records FoundNo Advanced Directives Records Found Additional Source Comments INFORMATION SOURCE (unrecogn ized section and content) DATE CREATED AUTHOR 02/10/2019 [employer] DATE CREATED AUTHOR AUTHOR'S ORGANIZ ATION 10/15/2022 [facility] DATE CREATED AUTHOR AUTHOR'S ORGANIZ ATION 08/09/2024 [facility] [employer] Care Teams (unrecognized sec tion and content) Node Js Developer Relationship Specialty Start Date End Date Karsten Sin MD [address] [place] [phone] PCP - General Family Medicine 07/29/23 Karsten Sin MD [address] [place] [phone] PCP - Medical [employer] 02/09/22 07/11/99 Node Js Developer Relationship Specialty Start Date End Date Karsten Sin MD [address] [place] [address] PCP - General Family Medicine 07/29/23 Karsten Sin MD [address] [place] [address] PCP - Medical [place] 02/09/22 07/11/99 Reason for Visit (unrecogniz ed [...] BE BASED ON THE PRIMARY CLINICAL RECORDS. [employer] provides no warranty or guarantee of the accuracy or completeness of information in this document.
== END 2024-09-26 22:17 | disposition home or self-care (01) ==
LOC: LAB 22:16
PROVIDERS: PCP Family Medicine; Visit Provider Family Medicine
DX: Z01.419 Encounter for gynecological examination (general) (routine) without abnormal findings (principal)
CPT/HCPCS: 87624; 88175